=== PATIENT | female | born 1995 | race Caucasian/White ===

== ENCOUNTER 2024-06-13 10:13 | Emergency (ER) | payer MEDICAID ==
[~2024-06-13] VITALS: Ht 177.8 cm; Wt 92.2 kg
[2024-06-13 11:12] LABS: BILIRUBIN,URINE NEGATIVE (Neg); CLARITY,URINE CLEAR (Clear); COLOR,URINE YELLOW (Yellow); GLUCOSE, URINE NEGATIVE (Neg); KETONES,URINE NEGATIVE (Neg); LEUKOCYTE ESTERASE ,URINE NEGATIVE (Neg); NITRITES, URINE NEGATIVE (Neg); OCCULT BLOOD,URINE MODERATE (Neg); PROTEIN,URINE NEGATIVE (Neg)
[2024-06-13 11:17] LABS: UA COLLECTION TYPE CLN CATCH MIDSTREAM
[2024-06-13 11:18] LABS: URINE HCG NEGATIVE (NEG)
[2024-06-13 11:19] LABS: BACTERIA,URINE 2+ /HPF (Neg); SQUAMOUS EPITHELIAL CELL,UR MODERATE /LPF (FEW); WBC,URINE 0-4 /HPF (0-4)
[2024-06-13] MEDS ORDERED: TRAM50TA2 PO (13:06)
[2024-06-13 13:15] VITALS: BP 135/88; PULSE 65; RESP 19; TEMP 97.8; O2SAT 100
== END 2024-06-13 13:15 | disposition home or self-care (01) ==
LOC: ER 10:13
DX: M54.59 Other low back pain (principal)
CPT/HCPCS: 72100; 81001; 81025; 99284